=== PATIENT | male | born 1980 | race American Indian/Alaskan Native ===

== ENCOUNTER 2020-04-12 00:39 | Emergency (ER) | payer SELFPAY ==
[2020-04-12 10:24] VITALS: BP 93/63
--- NOTE | 2020-04-12 11:14 | Emergency Department Report ---
Chief Complaint: Medical Clearance Stated Complaint: ABD/KNEE PAIN/MED REFILL Time Seen by Provider: 04/12/20 10:31 - HPI History of Present Illness: This is a 39-year-old male currently homeless x3 months stating that his cousin sold the house to relieve it and so he has been on the streets for the past 3 months. Patient presented today stating he does not know if he has pneumonia because he is being outside this few months. Patient also stating that he needs retirement or somewhere to stay. Patient states that he is requesting help for placement. Patient denies any medical history other than schizophrenia. Denies fever/chills/nausea vomiting/abdominal pain/chest pain/shortness of breath. Patient does note that he has been coughing for some time now. - ROS Review of Systems: As noted in HPI - Exam Vital Signs: Vital Signs 04/12/20 01:19 Temperature 97.3 F L Pulse Rate 56 L Respiratory 18 Rate Blood Pressure 93/63 O2 Sat by Pulse 98 Oximetry Physical Exam: GENERAL: Alert and oriented x3, no apparent distress, Normal Gait, atraumatic. HEAD: Head is normocephalic and a-traumatic. NECK: Supple. Non edematous, No carotid bruits. No lymphadenopathy or thyromegaly. No C-spine tenderness LUNGS: Symetrical with respiration, No wheezing, no rales or crackles, CTAB. HEART: S1, S2 present, regular rate and rhythm without murmur, no rubs, no gallops. Non tender to palpation ABDOMEN: No organomegaly was noted,Positive bowel sounds, soft, and non- distended. . Nontender to palpation on all Quadrants, NO CVA tenderness. PSYCHIATRIC: Mood is congruent with affect, denies suicidal or homicidal ideations. SKIN: Warm and dry, No lesions, No ulceration or induration present. MSE screening note: Focused history and physical exam performed. Due to findings the following was ordered: ED Medical Decision Making - Medical Decision Making This 39-year-old male presents requesting retirement resources. I discussed with patient we can give him resources to go to homeless retirement. Resources given to patient. Chest x-ray ordered to rule out pneumonia. Chest x-ray was completed as patient left prior to getting chest x-ray Vital signs are normal patient is in no acute or respiratory distress. At this time patient will be discharged with resources to go to homeless retirement for assistance. Vital signs are normal he is in no acute or respiratory distress. Patient understands all instructions ED Disposition for MSE Disposition: DC-01 TO HOME OR SELFCARE Is pt being admited?: No Does the pt Need Aspirin: No Condition: Stable Referrals: PRIMARY CARE, [Primary Care Provider] - 3-5 Days
== END 2020-04-12 11:43 | disposition home or self-care (01) ==
LOC: ED 00:39
DX: R05 Cough (principal)
CPT/HCPCS: 99281

== ENCOUNTER 2021-08-30 11:41 | Emergency (ER) | payer MEDICARE | END 2021-08-30 11:45 | disposition left against medical advice (07) | LOC: ED 11:41 | DX: M79.603 Pain in arm, unspecified (principal); Z53.21 Procedure and treatment not carried out due to patient leaving prior to being seen by health care provider ==